=== PATIENT | male | born 1960 | race Caucasian/White ===

== ENCOUNTER → 2023-10-01 | Outpatient (CLI) | payer OTHER, BC ==
[~2023-10-01] MED LIST: KLONOPIN1 MG PO; LOMOTIL 0.025 M1 TAB PO; PROTONIX40 MG PO; Zofran4 MG PO
== END | disposition home or self-care (01) ==
LOC: RAD 13:55
PROVIDERS: ATTEND Family Medicine
DX: M19.071 Primary osteoarthritis, right ankle and foot (principal)

== ENCOUNTER → 2024-05-27 | Outpatient (CLI) | payer OTHER ==
[2024-05-27 12:13] LABS: BASO % 0.8 % (0.0-1.0); EOS # 0.1 10*3/uL (0.0-0.4); EOS % 1.5 % (1.0-4.0); HEMATOCRIT 38.9 % (42.0-52.0); LYMPH # 0.9 10*3/uL (1.3-4.4); LYMPH % 17.5 % (27.0-41.0); MEAN CELL VOLUME 98.7 fl (80.0-94.0); MEAN CORPUSCULAR HGB 35.3 pg (27.0-31.0); MEAN CORPUSCULAR HGB CONC 35.7 g/dl (33.0-37.0); MEAN PLATELET VOLUME 9.2 fl (9.6-12.3); MONO # 0.4 10*3/uL (0.1-1.0); MONO % 8.1 % (3.0-9.0); NEUT # 3.8 10*3/uL (2.3-7.9); NEUT % 71.7 % (47.0-73.0); PLATELET COUNT AUTOMATED 106 10*3/uL (130-400); RED BLOOD COUNT 3.94 10*6/uL (4.50-5.90); RED CELL DISTRI WIDTH 11.7 % (0-14.5); RETICULOCYTE % 2.08 % (0.50-2.50); WHITE BLOOD COUNT 5.3 10*3/uL (4.8-10.8)
[2024-05-27 12:18] LABS: BILIRUBIN Negative (Negative); BLOOD 1+ (Negative); CLARITY Clear (Clear); COLOR Yellow (Yellow); GLUCOSE Negative (Negative); KETONE Negative (Negative); LEUKO ESTERASE Negative (Negative); NITRITE Negative (Negative); PH 6.5 (4.5-8.0)
[2024-05-27 12:43] LABS: ALKALINE PHOSPHATASE 156 U/L (46-116); BUN 11 mg/dl (9-23); CHLORIDE 105 mmol/L (98-107); CHOLESTEROL 113 mg/dL (<200); GAMMA GLUTAMYL TRANSPEPTIDASE 613 U/L (0-73); LDL CHOLESTEROL 41 mg/dL (9-159); SGPT/ALT 79 U/L (5-49); T3 UPTAKE 20.4 % (22.4-36.7); THYROXINE (T4) TOTAL 12.7 ug/dl (4.5-10.9); TOTAL PROTEIN 6.5 gm/dL (6.0-8.0); TRIGLYCERIDES 168 mg/dl (<150); URIC ACID 4.8 mg/dL (3.7-9.2); VITAMIN D, 25-HYDROXY 54.8 ng/mL (30-100)
[2024-05-27 13:14] LABS: EPITHELIAL CELLS 0-2
[2024-05-28 11:08] LABS: ANTI-DSDNA ANTIBODIES <1 IU/mL (0-9)
== END | disposition home or self-care (01) ==
LOC: LAB 11:49
PROVIDERS: ATTEND Family Medicine
DX: E78.5 Hyperlipidemia, unspecified (principal); R79.89 Other specified abnormal findings of blood chemistry; R53.83 Other fatigue; E55.9 Vitamin D deficiency, unspecified

== ENCOUNTER → 2024-09-14 | Outpatient (CLI) | payer OTHER ==
[2024-09-14 14:23] LABS: BASO # 0.1 10*3/uL (0.0-0.1); EOS # 0.1 10*3/uL (0.0-0.4); EOS % 2.3 % (1.0-4.0); HEMATOCRIT 36.6 % (42.0-52.0); LYMPH # 1.3 10*3/uL (1.3-4.4); LYMPH % 24.5 % (27.0-41.0); MEAN CELL VOLUME 98.9 fl (80.0-94.0); MEAN CORPUSCULAR HGB 34.6 pg (27.0-31.0); MEAN PLATELET VOLUME 8.8 fl (9.6-12.3); MONO # 0.5 10*3/uL (0.1-1.0); MONO % 10.3 % (3.0-9.0); NEUT # 3.2 10*3/uL (2.3-7.9); NEUT % 61.7 % (47.0-73.0); PLATELET COUNT AUTOMATED 125 10*3/uL (130-400); RED CELL DISTRI WIDTH 11.6 % (0-14.5); RETICULOCYTE % 2.04 % (0.50-2.50); WHITE BLOOD COUNT 5.2 10*3/uL (4.8-10.8)
[2024-09-14 14:25] LABS: BILIRUBIN Negative (Negative); BLOOD 1+ (Negative); CLARITY Clear (Clear); COLOR Yellow (Yellow); GLUCOSE Negative (Negative); KETONE Negative (Negative); LEUKO ESTERASE Negative (Negative); NITRITE Negative (Negative); PH 6.5 (4.5-8.0); SPECIFIC GRAVITY <= 1.005 (1.001-1.030)
[2024-09-14 14:32] LABS: WBC 0-2 wbc/hpf (0-5)
[2024-09-14 14:33] LABS: BACTERIA TRACE
[2024-09-14 14:50] LABS: ALKALINE PHOSPHATASE 140 U/L (46-116); BUN 10 mg/dl (9-23); CHLORIDE 101 mmol/L (98-107); CHOLESTEROL 105 mg/dL (<200); GAMMA GLUTAMYL TRANSPEPTIDASE 270 U/L (0-73); LDL CHOLESTEROL 55 mg/dL (9-159); SGPT/ALT 51 U/L (5-49); TOTAL PROTEIN 6.3 gm/dL (6.0-8.0); TRIGLYCERIDES 73 mg/dl (<150); URIC ACID 6.2 mg/dL (3.7-9.2); VITAMIN D, 25-HYDROXY 46.6 ng/mL (30-100)
[2024-09-15 12:08] LABS: ANTI-DSDNA ANTIBODIES <1 IU/mL (0-9)
== END | disposition home or self-care (01) ==
LOC: LAB 13:54
PROVIDERS: ATTEND Family Medicine
DX: E78.5 Hyperlipidemia, unspecified (principal); R79.89 Other specified abnormal findings of blood chemistry; R53.83 Other fatigue; R74.8 Abnormal levels of other serum enzymes; E55.9 Vitamin D deficiency, unspecified

== ENCOUNTER → 2024-09-22 | Outpatient (CLI) | payer OTHER | END | disposition home or self-care (01) | LOC: US 09:00 | PROVIDERS: ATTEND Family Medicine | DX: K80.20 Calculus of gallbladder without cholecystitis without obstruction (principal); R16.0 Hepatomegaly, not elsewhere classified; N28.1 Cyst of kidney, acquired; R10.84 Generalized abdominal pain; R10.2 Pelvic and perineal pain ==

== ENCOUNTER → 2024-09-24 | Outpatient (CLI) | payer OTHER ==
[~2024-09-24] MED LIST changes: +IOHEXOL 300 MG/ML 100 ML VIAL IV ONE
== END | disposition home or self-care (01) ==
LOC: CT 01:10
PROVIDERS: ATTEND Family Medicine
DX: K80.20 Calculus of gallbladder without cholecystitis without obstruction (principal); K57.30 Diverticulosis of large intestine without perforation or abscess without bleeding; N28.1 Cyst of kidney, acquired; R10.84 Generalized abdominal pain; R10.2 Pelvic and perineal pain; R18.8 Other ascites

== ENCOUNTER → 2024-10-02 | Outpatient (CLI) | payer OTHER ==
[~2024-10-02] MED LIST changes: -IOHEXOL 300 MG/ML 100 ML VIAL IV ONE; +SINCALIDE IV ONE; +SODIUM CHLORIDE 0.9% IV ONE; +Technetium Tc 99M Tetrofosmi 0.23 MG KIT IJ SCH
== END | disposition home or self-care (01) ==
LOC: NM 02:22
PROVIDERS: ATTEND Family Medicine
DX: R10.84 Generalized abdominal pain (principal); R10.2 Pelvic and perineal pain; R19.7 Diarrhea, unspecified; R11.0 Nausea; K80.20 Calculus of gallbladder without cholecystitis without obstruction; I10 Essential (primary) hypertension; I25.10 Atherosclerotic heart disease of native coronary artery without angina pectoris; E11.9 Type 2 diabetes mellitus without complications

== ENCOUNTER → 2024-10-12 | Outpatient (CLI) | payer OTHER ==
[~2024-10-12] MED LIST changes: -SINCALIDE IV ONE; -SODIUM CHLORIDE 0.9% IV ONE; -Technetium Tc 99M Tetrofosmi 0.23 MG KIT IJ SCH
[2024-10-12 12:28] LABS: TOTAL PROTEIN 6.9 gm/dL (6.0-8.0)
[2024-10-13 18:02] LABS: HEPATITIS C QNT 2240000 IU/mL (.)
== END | disposition home or self-care (01) ==
LOC: LAB 11:37
PROVIDERS: ATTEND Physician Assistant
DX: R79.89 Other specified abnormal findings of blood chemistry (principal); R76.8 Other specified abnormal immunological findings in serum

== ENCOUNTER 2025-05-10 16:15 | Emergency (ER) | payer OTHER, MEDICARE ==
[~2025-05-10] VITALS: Wt 72.1 kg
[2025-05-10] MEDS ORDERED: HYDROmorphONE Hydrochloride 0.5 MG/0.5 ML SYRINGE IV ONE ×3 (16:25→21:05)
[2025-05-10] MEDS ORDERED: SODIUM CHLORIDE 0.9% 1,000 ML IV ONE (16:25)
[2025-05-10 16:40] LABS: BASO % 0.7 % (0.0-1.0); EOS # 0.1 10*3/uL (0.0-0.4); EOS % 1.6 % (1.0-4.0); HEMATOCRIT 36.1 % (42.0-52.0); MEAN CORPUSCULAR HGB 32.1 pg (27.0-31.0); MEAN CORPUSCULAR HGB CONC 33.8 g/dl (33.0-37.0); MEAN PLATELET VOLUME 8.6 fl (9.6-12.3); MONO # 0.4 10*3/uL (0.1-1.0); MONO % 6.4 % (3.0-9.0); NEUT # 4.3 10*3/uL (2.3-7.9); NEUT % 76.9 % (47.0-73.0); PLATELET COUNT AUTOMATED 139 10*3/uL (130-400); RED CELL DISTRI WIDTH 12.5 % (0-14.5); WHITE BLOOD COUNT 5.6 10*3/uL (4.8-10.8)
[2025-05-10 16:50] LABS: ACT PARTIAL THROMBO TIME 26.9 SECONDS (20.0-32.1)
[2025-05-10 17:03] LABS: ALKALINE PHOSPHATASE 88 U/L (46-116); BUN 24 mg/dl (9-23); CHLORIDE 103 mmol/L (98-107); LIPASE 99 U/L (12-53); POTASSIUM 3.9 mmol/L (3.4-5.1); SGPT/ALT 9 U/L (5-49); TOTAL PROTEIN 7.7 gm/dL (6.0-8.0)
== END 2025-05-10 22:42 | disposition short-term general hospital (02) ==
LOC: ED 16:15
PROVIDERS: Internal Medicine
DX: K43.6 Other and unspecified ventral hernia with obstruction, without gangrene (principal); R11.0 Nausea; Z79.899 Other long term (current) drug therapy; Z98.890 Other specified postprocedural states

== ENCOUNTER → 2025-07-16 | Outpatient (CLI) | payer OTHER, MEDICARE ==
[2025-07-17 16:07] LABS: HEPATITIS C QUANTITATION HCV Not Detected IU/mL (.)
== END | disposition home or self-care (01) ==
LOC: LAB 11:27
PROVIDERS: ATTEND Specialist
DX: R76.8 Other specified abnormal immunological findings in serum (principal); B18.2 Chronic viral hepatitis C

== ENCOUNTER → 2025-09-30 | Outpatient (CLI) | payer MEDICARE ==
[2025-09-30 12:23] LABS: BASO # 0.1 10*3/uL (0.0-0.1); BASO % 0.9 % (0.0-1.0); EOS # 0.2 10*3/uL (0.0-0.4); EOS % 2.6 % (1.0-4.0); MEAN CELL VOLUME 94.0 fl (80.0-94.0); MEAN CORPUSCULAR HGB 31.7 pg (27.0-31.0); MEAN PLATELET VOLUME 9.0 fl (9.6-12.3); MONO # 0.5 10*3/uL (0.1-1.0); MONO % 6.0 % (3.0-9.0); NEUT # 5.5 10*3/uL (2.3-7.9); NEUT % 67.1 % (47.0-73.0); NUCLEATED RED BLOOD CELL 0.0 % (0.0-0.0); NUCLEATED RED BLOOD CELL 0.0 10*3/uL (0.0-0.0); PLATELET COUNT AUTOMATED 141 10*3/uL (130-400); RED CELL DISTRI WIDTH 13.2 % (0-14.5); RETICULOCYTE % 1.36 % (0.50-2.50)
[2025-09-30 12:27] LABS: BILIRUBIN Negative (Negative); BLOOD 1+ (Negative); CLARITY Clear (Clear); COLOR Yellow (Yellow); KETONE Negative (Negative); LEUKO ESTERASE Negative (Negative); NITRITE Negative (Negative); PH 5.5 (4.5-8.0); SPECIFIC GRAVITY <= 1.005 (1.001-1.030); UROBILINOGEN 0.2 E.U./dl (0.0-1.0)
[2025-09-30 12:40] LABS: EPITHELIAL CELLS 0-2; WBC 0-2 wbc/hpf (0-5)
[2025-09-30 12:57] LABS: BUN 33 mg/dl (9-23); GAMMA GLUTAMYL TRANSFERASE 37 U/L (0-73); LDL CHOLESTEROL 64 mg/dL (9-159); SGPT/ALT 12 U/L (5-49)
[2025-09-30 13:00] LABS: VITAMIN D, 25-HYDROXY 45.8 ng/mL (30-100)
[2025-10-01 13:07] LABS: HEPATITIS C QUANTITATION HCV Not Detected IU/mL (.)
== END | disposition home or self-care (01) ==
LOC: LAB 11:46
PROVIDERS: Family Medicine; ATTEND Specialist
DX: R00.1 Bradycardia, unspecified (principal); Z12.5 Encounter for screening for malignant neoplasm of prostate; R76.81 Abnormal rheumatoid factor and anti-citrullinated protein antibody without rheumatoid arthritis; B18.2 Chronic viral hepatitis C; R79.89 Other specified abnormal findings of blood chemistry; E78.5 Hyperlipidemia, unspecified; R74.8 Abnormal levels of other serum enzymes; E11.9 Type 2 diabetes mellitus without complications; E55.9 Vitamin D deficiency, unspecified